=== PATIENT | female | born 1935 | race Caucasian/White ===

== ENCOUNTER 2016-08-31 11:05 | Emergency (ER) | payer MEDICARE, OTHER ==
[2016-08-31 11:45] VITALS: TEMP 98.2; O2SAT 98; BMI 24.6
--- NOTE | 2016-08-31 11:45 | ED PDOC ---
HPI: General Adult Time Seen by Provider: 08/31/16 11:25 Chief Complaint (Nursing): Lower Extremity Problem/Injury Chief Complaint (Provider): Lower Extremity Problem/Injury History Per: Family History/Exam Limitations: no limitations Onset/Duration Of Symptoms: Days (since 17:00 yesterday) Current Symptoms Are (Timing): Still Present Additional Complaint(s): 80 y/o female with a past medical history of dementia, dialysis, hypertension, cardiac stent, and anxiety who presents to the emergency department accompanied by family member with a complaint of right-sided hip pain since 17:00 yesterday. As per history from family member, patient was on the couch. As patient stood up, she slipped, fell, and landed on her right hand and hip. Patient was given medication for the relief of pain this morning. Denies headache, arm pain, shortness of breath, chest pain, dizziness, or vomiting. No headaches. No neck pain. Of note, patient had previous midline pelvis fracture; was not seen with x-ray but then identified with CAT scan. Past Medical History Reviewed: Historical Data, Nursing Documentation, Vital Signs Vital Signs: Last Vital Signs Temp 98.2 F 08/31/16 11:09 Pulse 61 08/31/16 12:31 Resp 20 08/31/16 12:31 BP 177/66 H 08/31/16 12:31 Pulse Ox 98 08/31/16 12:35 - Medical History PMH: Alzheimer's Disease, Anemia, Anxiety, CAD, CHF, COPD, Dementia, Depression , Fractures (pelvis), HTN, End Stage Renal Disease, Chronic Kidney Disease ( DIALYSIS 3X [facility]) Denies: Kidney Stones - Surgical History Surgical History: CABG (2011) Denies: Appendectomy, Hernia Repair, Pacemaker Other surgeries: Hysterectomy - Family History Family History: States: Unknown Family Hx - Living Arrangements Living Arrangements: With Family - Social History Current smoker - smoking cessation education provided: No Ex-Smoker (has not smoked in the last 12 months): No Alcohol: None Drugs: Denies - Immunization History Hx Tetanus Toxoid Vaccination: No Hx Influenza Vaccination: No Hx Pneumococcal Vaccination: Yes (2011) - Home Medications Home Medications: Ambulatory Orders Medication Instructions Recorded Acetaminophen [Tylenol 325mg tab] 650 mg PO Q4 PRN #0 tab 04/13/15 Ergocalciferol [Drisdol 50,000 50,000 intlu PO Q7D #0 cap 04/13/15 Intl Units Cap] Heparin 5,000 units SC Q12 #0 vial 04/13/15 Metoprolol Tartrate [Lopressor] 25 mg PO BIDCC #0 tab 04/13/15 Moxifloxacin Hydrochloride [Avelox] 400 mg PO DAILY #10 tab 04/13/15 Saccharomyces Boulardii [Florastor] 250 mg PO BID #20 cap 04/13/15 Sevelamer Carbonate [Renvela] 800 mg PO TIDCC #0 tab 04/13/15 Vitamin B Complex/Vit C/Folic 1 tab PO DAILY #0 tab 04/13/15 [Nephro-Nick] - Allergies Allergies/Adverse Reactions: Allergies Allergy/AdvReac Type Severity Reaction Status Date / Time aspirin Allergy Mild RASH Verified 08/31/16 11:17 Penicillins Allergy Mild RASH Verified 08/31/16 11:17 Review of Systems ROS Statement: Except As Marked, All Systems Reviewed And Found Negative Cardiovascular: Negative for: Chest Pain Respiratory: Negative for: Shortness of Breath Gastrointestinal: Negative for: Vomiting Musculoskeletal: Positive for: Other (Right hip pain). Negative for: Arm Pain Neurological: Negative for: Headache, Dizziness Physical Exam - Reviewed Nursing Documentation Reviewed: Yes Vital Signs Reviewed: Yes - Physical Exam Appears: Positive for: Non-toxic, No Acute Distress Head Exam: Positive for: ATRAUMATIC, NORMOCEPHALIC Skin: Positive for: Normal Color, Warm, Dry Eye Exam: Positive for: Normal appearance. Negative for: Conjunctival injection Neck: Positive for: Normal, Painless ROM, Supple Cardiovascular/Chest: Positive for: Regular Rate, Rhythm. Negative for: Edema, Murmur Respiratory: Positive for: Normal Breath Sounds. Negative for: Accessory Muscle Use, Respiratory Distress Gastrointestinal/Abdominal: Positive for: Normal Exam, Soft. Negative for: Tenderness Back: Positive for: Normal Inspection. Negative for: L CVA Tenderness, R CVA Tenderness Extremity: Positive for: Normal ROM (Full ROM of the hips and legs), Tenderness (R hip not on palpations but only with full flexion). Negative for: Pedal Edema , Calf Tenderness Neurologic/Psych: Positive for: Alert, Oriented - ECG O2 Sat by Pulse Oximetry: 98 (RA) Pulse Ox Interpretation: Normal - Progress ED Course And Treament: 1418: Stable. AAOx3. Pain free. Tolerated PO. Smiling. Ambulated with assistance. Fu with pcp. Medical Decision Making Medical Decision Making: Time: 11:25 Initial impression: Right Hip Pain Initial plan: --Morphine 2 mg IM --Hip Right (HIP MIN 4V W/ Pelvis RT) (Rad) --Revaluation Time: 11:32 Morphine 2 mg IV Time: 12:21 Hip/Pelvis X-ray FINDINGS: BONES: Frontal view of the pelvis and frogleg views of the right hip were performed. Three views were performed in total. Degenerative changes of the right hip are noted. Diffuse osteopenia is seen. No right hip fracture is noted. Right femoral neck and femoral head appear intact. No dislocation is seen. No left hip fracture is noted. Sacroiliac joints are not widened. Symphysis is grossly intact. There appears to be a probable healing fracture of the inferior right pubic ramus. No proximal right femoral shaft is intact. JOINTS: See above SOFT TISSUES: No significant soft tissue swelling. OTHER FINDINGS: None. IMPRESSION: No appreciable right hip fracture. DJD right hip. Chronic inferior pubic ramus fracture. Time: 12:21 EXT Lower w/o Contrast CT Morphine 2 mg IV Scribe Attestation: Documented by Charlene Holt, acting as a scribe for Juan Pablo Lobato MD. Provider Scribe Attestation: All medical record entries made by the Scribe were at my direction and personally dictated by me. I have reviewed the chart and agree that the record accurately reflects my personal performance of the history, physical exam, medical decision making, and the department course for this patient. I have also personally directed, reviewed, and agree with the discharge instructions and disposition. Disposition - Clinical Impression Clinical Impression: Hip pain - Patient ED Disposition Is Patient to be Admitted: No Counseled Patient/Family Regarding: Studies Performed, Diagnosis, Need For Followup - Disposition Referrals: Darlene Garber MD [Medical Doctor] - 09/02/16 Disposition: Routine/Home Disposition Time: 14:20 Condition: STABLE Additional Instructions: Return if not better in 3 days. Instructions: Hip Pain (ED) Print Language: JAPANESE
--- NOTE | 2016-08-31 12:22 | RAD ---
PROCEDURE: Right Hip Radiographs. HISTORY: pain from trauma COMPARISON: None. FINDINGS: BONES: Frontal view of the pelvis and frogleg views of the right hip were performed. Three views were performed in total. Degenerative changes of the right hip are noted. Diffuse osteopenia is seen. No right hip fracture is noted. Right femoral neck and femoral head appear intact. No dislocation is seen. No left hip fracture is noted. Sacroiliac joints are not widened. Symphysis is grossly intact. There appears to be a probable healing fracture of the inferior right pubic ramus. No proximal right femoral shaft is intact. JOINTS: See above SOFT TISSUES: No significant soft tissue swelling. OTHER FINDINGS: None. IMPRESSION: No appreciable right hip fracture. DJD right hip. Chronic inferior pubic ramus fracture.
[2016-08-31 12:31] VITALS: BP 177/66; PULSE 61; RESP 20
--- NOTE | 2016-08-31 14:05 | CT ---
PROCEDURE: CT Pelvis without contrast HISTORY: R hip, femur pain from fall COMPARISON: None. TECHNIQUE: Contiguous axial images of the pelvis . No intravenous or oral contrast given. Coronal and sagittal reformats generated. Radiation dose: Total exam DLP = 193 mGy-cm. FINDINGS: BLADDER: Unremarkable. No mass. REPRODUCTIVE ORGANS: Unremarkable. VISUALIZED BOWEL: Chronic diverticular changes are appreciated. No bowel wall thickening is noted. PERITONEUM: No ascites seen. No presacral mass is noted. LYMPH NODES: Unremarkable. No enlarged lymph nodes. BONES: No appreciable right hip fracture is noted. Acetabular region is intact. Degenerative changes of the right hip are seen as well as diffuse osteopenia. Chronic right inferior pubic ramus fracture with deformity is seen. Lesser degree is seen in the inferior left pubic ramus. No obturator internus hematoma is noted. No appreciable gluteal hematomas are noted. No large joint effusions are seen. There appears to be the suggestion of some mild linear subchondral density along the peripheral aspect of the right lateral sacral ala adjacent to the right sacroiliac joint region. This has a chronic appearance and is probably related to prior chronic trauma and insufficiency fracture although correlation with symptoms would be suggested. No adjacent sacroiliac joint widening or hematoma is noted. Left sacroiliac joint and left sacral ala are unremarkable. VASCULATURE: Vascular stents are noted. OTHER FINDINGS: None. IMPRESSION: No appreciable acute right hip fracture. DJD of the right hip. No femoral head flattening is seen. Chronic inferior pubic ramus fractures. There is also some chronic appearing irregularity of the right lateral sacral ala more than likely representing chronic prior trauma. No displaced fractures or lucency/fracture lines are clearly identified to suggest acute insufficiency fracture.
== END 2016-08-31 14:25 | disposition home or self-care (01) ==
LOC: H.ER 11:05
DX: M25.551 Pain in right hip (principal); W01.0XXA Fall on same level from slipping, tripping and stumbling without subsequent striking against object, initial encounter; Y92.008 Other place in unspecified non-institutional (private) residence as the place of occurrence of the external cause; F02.80 Dementia in other diseases classified elsewhere, unspecified severity, without behavioral disturbance, psychotic disturbance, mood disturbance, and anxiety; G30.9 Alzheimer's disease, unspecified; I12.0 Hypertensive chronic kidney disease with stage 5 chronic kidney disease or end stage renal disease; I25.10 Atherosclerotic heart disease of native coronary artery without angina pectoris; Z95.1 Presence of aortocoronary bypass graft; Z95.5 Presence of coronary angioplasty implant and graft; Z99.2 Dependence on renal dialysis
CPT/HCPCS: 73503; 73700; 96372; 99285; J2270